=== PATIENT | male | born 1960 | race Caucasian/White ===

== ENCOUNTER 2021-03-12 16:30 | Outpatient (CLI) | payer OTHER, SELFPAY ==
--- NOTE | ~2021-03-12 | XR_ITS ---
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 TECHNIQUE: 1. Posteroanterior, ulnar deviation, oblique, and lateral views of the left wrist were obtained. 2. Posteroanterior, ulnar deviation, oblique, and lateral views of the right wrist were obtained. COMPARISON: none FINDINGS: Normal alignment at the bilateral wrists. No fractures. Osteoarthritis at the bilateral first carpal metacarpal joints, severe on the right and moderate to severe on the left with nonuniform joint space narrowing, mild subarticular cystic changes and hypertrophic osteophytes. Mild osteoarthritis at the bilateral triscaphe and first metacarpophalangeal joints. Soft tissues are unremarkable. IMPRESSION: 1. Osteoarthritis at the bilateral first carpal metacarpal joints, severe on the right and moderate t o severe on the left. Reviewed, dictated and finalized at location A. IMPRESSION: 1. Osteoarthritis at the bilateral first carpal metacarpal joints, severe on th e right and moderate to severe on the left.
== END 2021-03-12 16:31 | disposition home or self-care (01) ==
LOC: ANHLAB 16:36
PROVIDERS: PCP Internal Medicine; Visit Provider Plastic Surgery
DX: M19.031 Primary osteoarthritis, right wrist (principal); M19.032 Primary osteoarthritis, left wrist
CPT/HCPCS: 73110